=== PATIENT | male | born 1955 | race Caucasian/White ===

== ENCOUNTER 2018-09-30 08:31 | Emergency (ER) | payer MEDICARE, OTHER ==
--- NOTE | 2018-09-30 09:08 | EDM.PDOC ---
ED HPI GENERAL MEDICAL PROBLEM - General Chief Complaint: Neuro Symptoms/Deficits Stated Complaint: [facility] Time Seen by Provider: 09/30/18 08:59 Source of Information: Reports: Patient History Limitations: Reports: No Limitations - History of Present Illness INITIAL COMMENTS - FREE TEXT/NARRATIVE: 63-year-old male reports to the ED from [facility] per ambulance. States when he got out of the truck this morning his legs became weak like they're shaky and then he fell backwards onto his buttock. Problems started about a month ago when he had problems getting out of the truck and got dizzy weak in the knees and nearly fell backwards onto his head. He did nopt actually go down to the ground when he was holding onto a post so ended did not fall severely to the ground. Patient has 3 herniated disks in his back and has problems with intermittent chronic low back pain. Is not taking any pain medicine for this. His other issues are chronic hypertension for which he takes 4 different blood pressure medications. No known heart attack. No real true vertigo symptoms. He is appreciated that he's lost some of the peripheral vision in his left field of vision. This happened spontaneously. No associated nausea or vomiting. Drives long distances drink a lot of diet Pepsi. Apparently he does not have diabetes. Has no known previous heart history. Smoker pack per day used to smoke 3 packs a day has been weaning down. Onset: Unknown/Unsure (Many problems over the last month or so. Feels offkilter usually getting out of the truck walking between 10 and 15 feet and then gets dizzy and collapses. 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) (Weakness occurs in his lower extremities like they're going to give out on him at times.) - Related Data Allergies Allergy/AdvReac Type Severity Reaction Status Date / Time No Known Allergies Allergy Verified 09/30/18 09:39 Home Meds: Home Meds Albuterol Sulfate [Proair Hfa] 2 puff INH ASDIRECTED 09/30/18 [History] Candesartan Cilexetil [Atacand] 32 mg PO DAILY 09/30/18 [History] Cholecalciferol (Vitamin D3) [Vitamin D3] 2,000 mg PO DAILY 09/30/18 [History] Dicyclomine [Bentyl] 20 mg PO Q6H PRN #8 tablet 09/30/18 [Rx] Ipratropium [Atrovent HFA] 2 puff INH ASDIRECTED 09/30/18 [History] Ondansetron [Zofran] 4 mg BUCCAL Q6H PRN #8 tab 09/30/18 [Rx] Spironolactone 50 mg PO DAILY 09/30/18 [History] Verapamil [Covera-HS] 240 mg PO DAILY 09/30/18 [History] hydrALAZINE [Apresoline] 50 mg PO BID 09/30/18 [History] Past Medical History Cardiovascular History: Reports: Hypertension (If and hypertension), Other (See Below) (Chronic venous insufficiency and dependent edema) Respiratory History: Reports: COPD (Mild COPD with wheezing) Endocrine/Metabolic History: Reports: Obesity/BMI 30+ Social & Family History - Tobacco Use Smoking Status *Q: Current Some Day Smoker Years of Tobacco use: 50 Packs/Tins Daily: 0.3 - Caffeine Use Caffeine Use: Reports: Soda - Recreational Drug Use Recreational Drug Use: No - Living Situation & Occupation Living situation: Reports: Occupation: Employed ED ROS GENERAL - Review of Systems Review Of Systems: See Below Constitutional: Reports: Malaise, Weakness, Fatigue, Weight Gain. Denies: Fever , Chills HEENT: Reports: Vision Change, Other Respiratory: Reports: Shortness of Breath (Is appreciated loss of peripheral vision on his left eye. This is seems to be gradual over the last month or more. ), Wheezing, Cough (Occasional nonproductive cough.). Denies: Pleuritic Chest Pain Cardiovascular: Reports: Blood Pressure Problem, Dyspnea on Exertion, Lightheadedness. Denies: Chest Pain (Chronically), Claudication, Orthopnea ( Chronic hypertension), Palpitations (Lightheaded dizziness when he gets out of the truck at times see history of present illness) Endocrine: Reports: Fatigue GI/Abdominal: Reports: No Symptoms : Reports: Frequency, Other Musculoskeletal: Reports: Back Pain (Nocturia 2 back pain due to 3 ruptured disks in his back. He is scheduled for MRI in the early part of October.) Skin: Reports: Erythema, Other (Running dependent edema and excoriations both lower extremities from scratching.) Neurological: Reports: Dizziness, Other Psychiatric: Reports: No Symptoms (Collapsing backwards on 3 different occasions over the last month.) ED EXAM, NEURO - Physical Exam Exam: See Below Exam Limited By: No Limitations General Appearance: Alert, WD/WN, No Apparent Distress, Other (Vital signs show a slightly elevated blood pressure. O2 sats 94% on room air.) Eye Exam: Bilateral Eye: Normal Inspection (Visual field examination does reveal any peripheral visual field deficit on the left side as compared to the right. No palpable edema. Very small cataracts noted bilaterally.) Throat/Mouth: Normal Inspection, Normal Lips, Normal Oropharynx, Other Head Exam: Atraumatic, Normocephalic (Uvula is in the midline) Neck: Normal Inspection, Supple, Non-Tender, Full Range of Motion. No: Lymphadenopathy (L), Lymphadenopathy (R) Respiratory/Chest: No Respiratory Distress, Chest Non-Tender, Decreased Breath Sounds, Wheezing (Bilateral expiratory wheezes.) Cardiovascular: Regular Rate, Rhythm. No: Normal Peripheral Pulses (Decreased breath sounds the lower 20% of lung brown bilaterally), No Edema, No Gallop, Systolic Murmur GI/Abdominal: Soft, Non-Tender, No Organomegaly, No Abnormal Bruit, No Mass, Pelvis Stable, Other (Markedly obese. Abdominal girth limits ability to palpate solid organs.) Neurological: Alert, Normal Mood/Affect, Normal Dorsiflexion, CN II-XII Intact, Normal Gait, Normal Reflexes, Oriented x 3 DTR: 0: Achilles (R), Achilles (L), 1+: Bicep (R), Bicep (L), Patella (R), Patella (L) Extremities: Normal Inspection, Pedal Edema (3+ pitting edema both lower extremities with excoriations to both lower extremities from scratching.) Psychiatric: Normal Affect, Normal Mood Skin Exam: Warm, Dry, Intact, Normal Color, Erythema (With evidence of spontaneous scratching both lower extremities) EKG INTERPRETATION EKG Date: 09/30/18 Time: 08:45 Rhythm: NSR Rate (Beats/Min): 82 [place]: LAD-Left [place] Deviation (-49 left anterior fascicular block pattern) P-Wave: Present (First-degree AV block) QRS: Other (Q waves V1 and V2 and near Q-wave V3 suggesting old anteroseptal myocardial infarction. Poor R-wave progression with late transition.) ST-T: Normal QT: Prolonged (Mildly prolonged) EKG Interpretation Comments: Abnormal ECG Course - Vital Signs Last Recorded V/S: Last Vital Signs Temp 36.5 C 09/30/18 08:38 Pulse 80 09/30/18 08:38 Resp 18 09/30/18 08:38 BP 151/93 H 09/30/18 08:38 Pulse Ox 93 L 09/30/18 15:02 - Orders/Labs/Meds Orders: Active Orders 24 hr Category Date Time Status EKG Documentation Completion [RC] STAT Care 09/30/18 09:08 Active RT Aerosol Therapy [RC] ASDIRECTED Care 09/30/18 14:49 Active CBC W/O DIFF,HEMOGRAM [HEME] MOTH@0700 Lab 10/03/18 07:00 Ordered CBC W/O DIFF,HEMOGRAM [HEME] MOTH@0700 Lab 10/06/18 07:00 Ordered CBC W/O DIFF,HEMOGRAM [HEME] MOTH@0700 Lab 10/10/18 07:00 Ordered CBC W/O DIFF,HEMOGRAM [HEME] MOTH@0700 Lab 10/13/18 07:00 Ordered CBC W/O DIFF,HEMOGRAM [HEME] MOTH@0700 Lab 10/17/18 07:00 Ordered CBC W/O DIFF,HEMOGRAM [HEME] MOTH@0700 Lab 10/20/18 07:00 Ordered Heparin Sodium/D5W [Heparin 25,000 Units in D5W 500 ML] Med 09/30/18 15:30 Active 25,000 units in 500 ml IV ASDIRECTED Sodium Chloride 0.9% [Normal Saline] 1,000 ml Med 09/30/18 09:15 Active IV ASDIRECTED Sodium Chloride 0.9% [Normal Saline] 100 ml Med 09/30/18 12:45 Active IV ASDIRECTED Medication Orders Sodium Chloride (Normal Saline) 1,000 mls @ 100 mls/hr IV ASDIRECTED DIPIKA Last Admin: 09/30/18 09:28 Dose: 100 mls/hr Sodium Chloride (Normal Saline) 100 mls @ 60 mls/hr IV ASDIRECTED DIPIKA Last Admin: 09/30/18 13:25 Dose: 60 mls/hr Heparin Sodium/Dextrose (Heparin 25,000 Units In D5w 500 Ml) 25,000 units in 500 mls @ 20 mls/hr IV ASDIRECTED DIPIKA Last Admin: 09/30/18 15:30 Dose: 1,000 units/hr, 20 mls/hr Labs: Laboratory Tests 09/30/18 09/30/18 09/30/18 Range/Units 07:25 07:25 07:25 WBC 8.22 (4.23-9.07) K/mm3 RBC 5.09 (4.63-6.08) M/mm3 Hgb 16.6 (13.7-17.5) gm/L Hct 49.2 (40.1-51.0) % MCV 96.7 H (79.0-92.2) fl MCH 32.6 H (25.7-32.2) pg MCHC 33.7 (32.2-35.5) g/dl RDW Std Deviation 47.0 H (35.1-43.9) fL Plt Count 269 (163-337) K/mm3 MPV 9.8 (9.4-12.3) fl Neutrophils % (Manual) 66 H (40-60) % Band Neutrophils % 0 (0-10) % Lymphocytes % (Manual) 21 (20-40) % Atypical Lymphs % 0 % Monocytes % (Manual) 10 (2-10) % Eosinophils % (Manual) 3 (0.8-7.0) % Basophils % (Manual) 0 L (0.2-1.2) Platelet Estimate Adequate RBC Morph Comment Normal D-Dimer, Quantitative (0.19-0.50) mg/L Sodium 137 (136-145) mEq/L Potassium 3.9 (3.5-5.1) mEq/L Chloride 100 (98-107) mEq/L Carbon Dioxide 25 (21-32) mEq/L Anion Gap 15.9 H (5-15) BUN 12 (7-18) mg/dL Creatinine 1.3 (0.7-1.3) mg/dL Est Cr Clr Drug Dosing 58.49 mL/min Estimated GFR (MDRD) 55 (>60) mL/min BUN/Creatinine Ratio 9.2 L (14-18) Glucose 120 H (80-115) mg/dL Hemoglobin A1c (4.50-6.20) % Calcium 9.1 (8.5-10.1) mg/dL Magnesium 1.9 (1.8-2.4) mg/dl Total Bilirubin 0.3 (0.2-1.0) mg/dL AST 30 (15-37) U/L ALT 37 (16-63) U/L Alkaline Phosphatase 50 (46-116) U/L CK-MB (CK-2) (0-3.6) ng/ml Troponin I 0.127 H* (0.00-0.056) ng/mL C-Reactive Protein 0.3 (<1.0) mg/dL NT-Pro-B Natriuret Pep (0-125) pg/mL Total Protein 7.4 (6.4-8.2) g/dl Albumin 3.7 (3.4-5.0) g/dl Globulin 3.7 gm/dL Albumin/Globulin Ratio 1.0 (1-2) TSH 3rd Generation 0.916 (0.358-3.74) uIU/mL Urine Color (Yellow) Urine Appearance (Clear) Urine pH (5.0-8.0) Ur Specific [place] (1.005-1.030) Urine Protein (Negative) Urine Glucose (UA) (Negative) Urine Ketones (Negative) Urine Occult Blood (Negative) Urine Nitrite (Negative) Urine Bilirubin (Negative) Urine Urobilinogen (0.2-1.0) Ur Leukocyte Esterase (Negative) Urine RBC (0-5) /hpf Urine WBC (0-5) /hpf Ur Epithelial Cells (0-5) /hpf Urine Bacteria (FEW) /hpf Urine Mucus (FEW) /hpf 09/30/18 09/30/18 09/30/18 Range/Units 07:25 07:25 07:25 WBC (4.23-9.07) K/mm3 RBC (4.63-6.08) M/mm3 Hgb (13.7-17.5) gm/L Hct (40.1-51.0) % MCV (79.0-92.2) fl MCH (25.7-32.2) pg MCHC (32.2-35.5) g/dl RDW Std Deviation (35.1-43.9) fL Plt Count (163-337) K/mm3 MPV (9.4-12.3) fl Neutrophils % (Manual) (40-60) % Band Neutrophils % (0-10) % Lymphocytes % (Manual) (20-40) % Atypical Lymphs % % Monocytes % (Manual) (2-10) % Eosinophils % (Manual) (0.8-7.0) % Basophils % (Manual) (0.2-1.2) Platelet Estimate RBC Morph Comment D-Dimer, Quantitative (0.19-0.50) mg/L Sodium (136-145) mEq/L Potassium (3.5-5.1) mEq/L Chloride (98-107) mEq/L Carbon Dioxide (21-32) mEq/L Anion Gap (5-15) BUN (7-18) mg/dL Creatinine (0.7-1.3) mg/dL Est Cr Clr Drug Dosing mL/min Estimated GFR (MDRD) (>60) mL/min BUN/Creatinine Ratio (14-18) Glucose (80-115) mg/dL Hemoglobin A1c 6.10 (4.50-6.20) % Calcium (8.5-10.1) mg/dL Magnesium (1.8-2.4) mg/dl Total Bilirubin (0.2-1.0) mg/dL AST (15-37) U/L ALT (16-63) U/L Alkaline Phosphatase (46-116) U/L CK-MB (CK-2) 5.6 H (0-3.6) ng/ml Troponin I (0.00-0.056) ng/mL C-Reactive Protein (<1.0) mg/dL NT-Pro-B Natriuret Pep 73 (0-125) pg/mL Total Protein (6.4-8.2) g/dl Albumin (3.4-5.0) g/dl Globulin gm/dL Albumin/Globulin Ratio (1-2) TSH 3rd Generation (0.358-3.74) uIU/mL Urine Color (Yellow) Urine Appearance (Clear) Urine pH (5.0-8.0) Ur Specific [place] (1.005-1.030) Urine Protein (Negative) Urine Glucose (UA) (Negative) Urine Ketones (Negative) Urine Occult Blood (Negative) Urine Nitrite (Negative) Urine Bilirubin (Negative) Urine Urobilinogen (0.2-1.0) Ur Leukocyte Esterase (Negative) Urine RBC (0-5) /hpf Urine WBC (0-5) /hpf Ur Epithelial Cells (0-5) /hpf Urine Bacteria (FEW) /hpf Urine Mucus (FEW) /hpf 09/30/18 09/30/18 09/30/18 Range/Units 09:25 10:00 13:40 WBC (4.23-9.07) K/mm3 RBC (4.63-6.08) M/mm3 Hgb (13.7-17.5) gm/L Hct (40.1-51.0) % MCV (79.0-92.2) fl MCH (25.7-32.2) pg MCHC (32.2-35.5) g/dl RDW Std Deviation (35.1-43.9) fL Plt Count (163-337) K/mm3 MPV (9.4-12.3) fl Neutrophils % (Manual) (40-60) % Band Neutrophils % (0-10) % Lymphocytes % (Manual) (20-40) % Atypical Lymphs % % Monocytes % (Manual) (2-10) % Eosinophils % (Manual) (0.8-7.0) % Basophils % (Manual) (0.2-1.2) Platelet Estimate RBC Morph Comment D-Dimer, Quantitative 2.45 H (0.19-0.50) mg/L Sodium (136-145) mEq/L Potassium (3.5-5.1) mEq/L Chloride (98-107) mEq/L Carbon Dioxide (21-32) mEq/L Anion Gap (5-15) BUN (7-18) mg/dL Creatinine (0.7-1.3) mg/dL Est Cr Clr Drug Dosing mL/min Estimated GFR (MDRD) (>60) mL/min BUN/Creatinine Ratio (14-18) Glucose (80-115) mg/dL Hemoglobin A1c (4.50-6.20) % Calcium (8.5-10.1) mg/dL Magnesium (1.8-2.4) mg/dl Total Bilirubin (0.2-1.0) mg/dL AST (15-37) U/L ALT (16-63) U/L Alkaline Phosphatase (46-116) U/L CK-MB (CK-2) 5.0 H (0-3.6) ng/ml Troponin I 0.124 H* (0.00-0.056) ng/mL C-Reactive Protein (<1.0) mg/dL NT-Pro-B Natriuret Pep (0-125) pg/mL Total Protein (6.4-8.2) g/dl Albumin (3.4-5.0) g/dl Globulin gm/dL Albumin/Globulin Ratio (1-2) TSH 3rd Generation (0.358-3.74) uIU/mL Urine Color Yellow (Yellow) Urine Appearance Clear (Clear) Urine pH 6.5 (5.0-8.0) Ur Specific [place] 1.015 (1.005-1.030) Urine Protein 1+ H (Negative) Urine Glucose (UA) Negative (Negative) Urine Ketones Negative (Negative) Urine Occult Blood Negative (Negative) Urine Nitrite Negative (Negative) Urine Bilirubin Negative (Negative) Urine Urobilinogen 0.2 (0.2-1.0) Ur Leukocyte Esterase Negative (Negative) Urine RBC 0-5 (0-5) /hpf Urine WBC 0-5 (0-5) /hpf Ur Epithelial Cells Not seen (0-5) /hpf Urine Bacteria Rare (FEW) /hpf Urine Mucus Not seen (FEW) /hpf Meds: Medications Generic Name Dose Route Start Last Admin Trade Name Freq PRN Reason Stop Dose Admin Sodium Chloride 1,000 mls @ 100 mls/hr 09/30/18 09:15 09/30/18 09:28 Normal Saline IV 100 mls/hr ASDIRECTED DIPIKA Administration Sodium Chloride 100 mls @ 60 mls/hr 09/30/18 12:45 09/30/18 13:25 Normal Saline IV 60 mls/hr ASDIRECTED DIPIKA Administration Heparin Sodium/Dextrose 25,000 units in 500 mls @ 20 mls/hr 09/30/18 15:30 15:30 Heparin 25,000 Units In D5w 500 Ml IV 1,000 units/hr ASDIRECTED DIPIKA 20 mls/hr Administration 1,000 UNITS/HR Discontinued Medications Generic Name Dose Route Start Last Admin Trade Name Johnq PRN Reason Stop Dose Admin Albuterol/Ipratropium 3 ml 09/30/18 14:49 09/30/18 15:01 Duoneb 3.0-0.5 Mg/3 Ml NEB 09/30/18 14:50 3 ml ONETIME ONE Administration Aspirin 324 mg 09/30/18 15:22 09/30/18 15:30 Aspirin PO 09/30/18 15:23 324 mg ONETIME ONE Administration Heparin Sodium (Porcine) 5,000 units 09/30/18 15:22 09/30/18 15:30 Heparin Sodium IVPUSH 09/30/18 15:23 5,000 units ONETIME ONE Administration Iopamidol 50 ml 09/30/18 12:34 09/30/18 13:24 Isovue-370 (76%) IVPUSH 09/30/18 12:35 50 ml ONETIME ONE Administration Iopamidol 100 ml 09/30/18 12:34 09/30/18 13:24 Isovue-370 (76%) IVPUSH 09/30/18 12:35 100 ml ONETIME ONE Administration Midazolam HCl 2 mg 09/30/18 12:39 09/30/18 12:46 Versed 1 Mg/Ml IVPUSH 09/30/18 12:40 2 mg ONETIME ONE Administration Sodium Chloride 10 ml 09/30/18 12:34 09/30/18 13:24 Saline Flush FLUSH 09/30/18 12:35 10 ml ONETIME ONE Administration - Radiology Interpretation Free Text/Narrative:: 63-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 The history would suggest this is likely orthostatic hypotension. He gets dizzy enough or we can open his legs that he often will fall backwards. This morning he felt onto his but buttocks without any major injuries. Similar event about a month ago. He has no new medications but is on four medications for blood pressure control one of them is verapamil and the other one is hydralazine both of which may act quite quickly. Patient does take all of his medications at the same time daily each may be contributing to orthostatic hypotension and causing him to fall when he gets out of his truck.. Examanation shows a man that is markedly overweight. He has COPD with wheezing his ECG suggests old anteroseptal myocardial infarction. He still smokes and we bit. Primary candidate to be diabetic. Plan CT had to be done since he keeps falling backwards. Labs to be done to include TSH and glycosylated protein. - Re-Assessments/Exams Free Text/Narrative Re-Assessment/Exam: 09/30/18 10:12 Labs reveal a white count of 8.22 with 66% neutrophils and no bands reported. Hemoglobin slightly elevated at 16.6 with hematocrit of 49.2 suggesting some degree of hemoconcentration. MCV is mildly elevated at 96.7. Platelet count is 2 or 69,000. Sodium 137 with potassium 3.9. Toward 100 with a bicarbonate 25. Anion gap is 15.9. B1 is 12 with a creatinine of 1.3. Estimated GFR is 55. Glucose is 120. Calcium is 9.1. Liver function is normal. Troponin I is elevated at 0.127. Note he is not complaining of any chest pain but had a syncopal event this morning her near syncopal event. C-reactive protein is 0.3. Total protein 7.4 with an albumin fraction of 3.7. BNP and CK-MB tests were ordered. Also a d-dimer 09/30/18 10:25 chest x-ray done portably appears to be within normal limits. Slightly tortuous thoracic aorta is appreciated. 09/30/18 12:24 D-dimer has returned elevated at 2.45. TSH has returned at 0.916 which is normal. A&P is 73. Hemoglobin A1c is 6.3. Urinalysis is completely normal. He can be fraction is also elevated at 5.6. Therefore he may well of had a recent myocardial infarction. The d-dimer could be elevated due to clot formation and coronary artery. Over has no chest pain. Proceed with CT pulmonary angiogram since his kidney function is good with a creatinine of 1.3. Repeat cardiac markers as well. 09/30/18 12:42 testing tech identified that the patient was quite claustrophobic even having his head CT done. I will therefore give him 2 mg of Versed in the hopes that this will help ease the CT pulmonary angiogram testing. Patient is in agreement. 09/30/18 14:49 patient is feeling more short of breath. Will repeat his DuoNeb treatment. Second troponin came back at 0.1-4 and CK-MB fraction came back at 5.0 essentially the same as what they were originally. 09/30/18 15:19 spoke to the 1 call service at [facility] in regards to his elevated troponin I. Reason for this is unclear and suggest that he may have had underlying cardiac event within the last [address] May from the department of cardiology and then Dr. Bardales hospitalist who will accept the patient in care. She'll be sent to that facility per ground ambulance. He will be given aspirin 324 chewed and then be given heparin 5000 unit bolus and started on one thousand units an hour. Departure - Departure Time of Disposition: 11:53 Disposition: DC/Tfer to Acute Hospital 02 Condition: Fair Clinical Impression: Orthostatic hypotension, Postural dizziness with near syncope - Discharge Information *PRESCRIPTION DRUG MONITORING PROGRAM REVIEWED*: Not Applicable *COPY OF PRESCRIPTION DRUG MONITORING REPORT IN PATIENT TD: Not Applicable Prescriptions: Dicyclomine [Bentyl] 20 mg PO Q6H PRN #8 tablet PRN Reason: Abdominal cramps/diarrhea Ondansetron [Zofran] 4 mg BUCCAL Q6H PRN #8 tab PRN Reason: nausea or vomiting Referrals: PCP,None [Primary Care Provider] - Additional Instructions: Patient transferred to [facility] due to persistently elevated troponin I at 0.127 and 0.1-4. ECG suggests old anteroseptal myocardial infarction. Patient has no history of [place]. has multiple risk factors in terms of obesity. Hypertension. Hypercholesterolemia. And cigarette smoker. Patient used to smoke 3 packs a day is down to 1 pack a day now. Therefore he may be a non-STEMI. And to [facility] for cardiology evaluation and management. - My Orders Last 24 Hours: My Active Orders 09/30/18 09:08 EKG Documentation Completion [RC] STAT 09/30/18 09:15 Sodium Chloride 0.9% [Normal Saline] 1,000 ml IV ASDIRECTED 09/30/18 12:45 Sodium Chloride 0.9% [Normal Saline] 100 ml IV ASDIRECTED 09/30/18 14:49 RT Aerosol Therapy [RC] ASDIRECTED 09/30/18 15:30 Heparin Sodium/D5W [Heparin 25,000 Units in D5W 500 ML] 25,000 units in 500 ml IV ASDIRECTED 10/03/18 07:00 CBC W/O DIFF,HEMOGRAM [HEME] MOTH@0710/06/18 07:00 CBC W/O DIFF,HEMOGRAM [HEME] MOTH@0710/10/18 07:00 CBC W/O DIFF,HEMOGRAM [HEME] MOTH@0710/13/18 07:00 CBC W/O DIFF,HEMOGRAM [HEME] MOTH@0710/17/18 07:00 CBC W/O DIFF,HEMOGRAM [HEME] MOTH@0710/20/18 07:00 CBC W/O DIFF,HEMOGRAM [HEME] MOTH@07 - Assessment/Plan Last 24 Hours: My Active Orders 09/30/18 09:08 EKG Documentation Completion [RC] STAT 09/30/18 09:15 Sodium Chloride 0.9% [Normal Saline] 1,000 ml IV ASDIRECTED 09/30/18 12:45 Sodium Chloride 0.9% [Normal Saline] 100 ml IV ASDIRECTED 09/30/18 14:49 RT Aerosol Therapy [RC] ASDIRECTED 09/30/18 15:30 Heparin Sodium/D5W [Heparin 25,000 Units in D5W 500 ML] 25,000 units in 500 ml IV ASDIRECTED 10/03/18 07:00 CBC W/O DIFF,HEMOGRAM [HEME] MOTH@0710/06/18 07:00 CBC W/O DIFF,HEMOGRAM [HEME] MOTH@0710/10/18 07:00 CBC W/O DIFF,HEMOGRAM [HEME] MOTH@0710/13/18 07:00 CBC W/O DIFF,HEMOGRAM [HEME] MOTH@0710/17/18 07:00 CBC W/O DIFF,HEMOGRAM [HEME] MOTH@0710/20/18 07:00 CBC W/O DIFF,HEMOGRAM [HEME] MOTH@07
[2018-09-30] MEDS ORDERED: Sodium Chloride 0.9% 1,000 ML IV SCH (09:15)
[2018-09-30 10:18] LABS: HEMOGLOBIN A1C 6.1 % (4.50-6.20)
--- NOTE | 2018-09-30 10:22 | CR ---
Chest: Portable view of the chest was obtained. Comparison: No prior chest x-ray. Heart size is normal. Tortuous thoracic aorta is seen. Lungs are clear with no acute parenchymal change. Bony structures are grossly intact. Impression: 1. Nothing acute is appreciated on portable chest x-ray. Diagnostic code #1
--- NOTE | 2018-09-30 10:41 | CT ---
Head CT Technique: Multiple axial sections through the brain were obtained. Intravenous contrast was not utilized. Comparison: No previous intracranial imaging. Findings: Low density is seen within the right occipital and right posterior parietal region. More cystic area is seen centrally measuring approximately 3.6 x 1.6 cm. There is increased density in this area compatible with mild amount of hemorrhage. Diminished density noted within portions of the periventricular white matter compatible with small vessel ischemic demyelination change. Atherosclerotic calcification is noted within the vertebral vessels and carotid siphon. Ventricles along with basal cisterns and sulci over the convexities are mildly prominent. 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 Impression: 1. Abnormality within the right occipital and right parietal region showing central cystic area with adjacent hemorrhage. Low density is noted around this area raising the possibility of cytotoxic edema. MRI recommended with contrast to further evaluate. 2. Other senescent change as noted above. Diagnostic code #9
[2018-09-30] MEDS ORDERED: Iopamidol 755 MG/ML 50 ML Bottle IVPUSH ONE (12:34)
[2018-09-30] MEDS ORDERED: Iopamidol 755 Mg/ML 100 ML Bottle IVPUSH ONE (12:34)
[2018-09-30] MEDS ORDERED: Sodium Chloride 0.9% 10 ML Syringe FLUSH ONE (12:34)
[2018-09-30] MEDS ORDERED: Midazolam 1 MG/ML 2 ML SDV IVPUSH ONE (12:39)
[2018-09-30] MEDS ORDERED: Sodium Chloride 0.9% 100 ML IV SCH (12:45)
--- NOTE | 2018-09-30 13:49 | CT ---
Chest CT Technique: Multiple axial sections through the chest are obtained. Study performed as a pulmonary angiogram protocol and intravenous contrast was therefore utilized. Comparison: No prior chest CT is available, previous chest x-ray performed earlier on the same day (09:13 AM). Findings: Pulmonary arteries are moderately well opacified. No filling defects are seen to indicate pulmonary embolism. No pericardial thickening is seen. Mild coronary artery calcification is noted. Mediastinum and hilar regions show no adenopathy or mass. Lungs are clear without acute parenchymal change. No pleural effusions are noted. Incidental fat is noted within the lower major fissure on the left side which is normal variant. Bone window settings were reviewed which show nothing acute. Impression: 1. No findings of pulmonary embolism. Nothing acute is seen on CT study of the chest. Diagnostic code #2
[2018-09-30] MEDS ORDERED: Albuterol/Ipratropium 3.0-0.5 MG/3 ML Neb Soln NEB ONE (14:49)
[2018-09-30] MEDS ORDERED: Heparin Sodium 5,000 Units/ML Vial IVPUSH ONE (15:22)
[2018-09-30] MEDS ORDERED: Aspirin 81 MG Tab.Chew PO ONE (15:22)
[2018-09-30] MEDS ORDERED: Heparin Sodium/D5W 25,000 UNITS/500 ML BAG IV SCH (15:30)
== END 2018-09-30 16:36 ==
LOC: JD.ED 08:31
DX: I95.1 Orthostatic hypotension (principal); F17.210 Nicotine dependence, cigarettes, uncomplicated; I10 Essential (primary) hypertension; J44.9 Chronic obstructive pulmonary disease, unspecified; Z79.899 Other long term (current) drug therapy
CPT/HCPCS: 36415; 70450; 71045; 71275; 80053; 81001; 82553; 83036; 83735; 83880; 84443; 84484; 85007; 85027; 85379; 86140; 93005; 94640; 96361; 96365; 96375; 99285; A9270; J1644; J2250; J7030; J7040; Q9967; 93010; J7620-GY